=== PATIENT | female | born 1990 | race Caucasian/White ===

== ENCOUNTER 2021-08-26 07:20 | Outpatient (CLI) | payer MEDICAID, OTHER ==
[~2021-08-26] VITALS: Ht 167.6 cm; Wt 49.5 kg
[~2021-08-26 07:20] MED LIST: AMBI10TA; COSYNTROPIN 0.25 MG/ML VIAL (J0834 PER 0.25MG) IV ONE; LITH300T2; SERO1TAB; SERO200T
[2021-08-26 08:17] VITALS: BP 117/68
[2021-08-26 09:05] VITALS: BP 98/55
== END 2021-08-26 09:00 | disposition home or self-care (01) ==
LOC: M INFU 07:20
PROVIDERS: ATTEND Internal Medicine Endocrinology, Diabetes & Metabolism
DX: L68.0 Hirsutism (principal)
CPT/HCPCS: 82533; 96374; J0834

== ENCOUNTER 2021-09-24 07:17 | Outpatient (CLI) | payer OTHER ==
[~2021-09-24] VITALS: Ht 167.6 cm; Wt 50.9 kg
[~2021-09-24 07:17] MED LIST changes: -COSYNTROPIN 0.25 MG/ML VIAL (J0834 PER 0.25MG) IV ONE
[2021-09-24 07:20] VITALS: BP 109/55
[2021-09-24] MEDS ORDERED: COSYNTROPIN 0.25 MG/ML VIAL (J0834 PER 0.25MG) IV ONE (07:30)
[2021-09-24] MEDS ORDERED: PROZ20CA11 PO (08:17)
[2021-09-24] MEDS ORDERED: SERO1TAB3 PO (08:34)
[2021-09-24 09:25] VITALS: BP 105/52
== END 2021-09-24 09:35 | disposition home or self-care (01) ==
LOC: M INFU 07:17
PROVIDERS: ATTEND Internal Medicine Endocrinology, Diabetes & Metabolism
DX: L68.0 Hirsutism (principal); Z88.8 Allergy status to other drugs, medicaments and biological substances
CPT/HCPCS: 36592; 82633; 82634; 83498; 84403; 96374; J0834